=== PATIENT | female | born 1980 | race Caucasian/White ===

== ENCOUNTER 2017-05-23 07:30 | Inpatient (IN) ==
[2017-05-21 11:14] LABS: Basophils % 0.4 % (0.0-0.8); Eosinophils # 0.2 10*3/uL (0.0-0.87); Eosinophils % 2.1 % (0.00-10.9); Hematocrit 41.1 VOL% (35.7-47.0); Hemoglobin 13.4 GM/DL (12.0-16.0); Immature Granulocytes % 0.4 %; Immature Granulocytes Absolute 0.04 #; Lymphocytes # 2.3 10*3/uL (1.4-4.0); Lymphocytes % 24.6 % (21.3-54.2); Mean Corpuscular HGB Conc 32.6 GM/DL (32-36); Mean Corpuscular Hemoglobin 28 PG (27-34); Mean Corpuscular Volume 86.5 FL (87-102); Mean Platelet Volume 9.1 FL (9.6-12.0); Monocytes # 0.5 10*3/uL (0.11-0.8); Monocytes % 5.3 % (1.7-12.7); Neutrophils # 6.3 10*3/uL (1.4-7.4); Neutrophils % 67.2 % (38.7-73.9); Platelet Count 265 T/CUMM (130-400); Red Blood Count 4.75 MC/CUMM (3.8-5.5); Red Cell Distribution Width 13.3 % (9.3-17.3); White Blood Count 9.4 T/CUMM (4-12)
[2017-05-21 11:40] LABS: Apearance,Urine Slightly Hazy (Clear); Bacteria,Urine Occasional /HPF (Few); Bilirubin,Urine Negative (Negative); Blood, Urine Negative (Negative); Glucose,Urine (UA) Negative (Negative); Ketones,Urine Negative (Negative); Mucus,Urine Occasional /LPF (Occasional); Nitrite,Urine Negative (Negative); Protein,Urine Negative; RBC,Urine 3 /HPF (0-4); Squamous Epithelial Cell,Urine Few /HPF (0-10); Urine Color Yellow (Yellow); Urine Specific Gravity 1.019 (1.001-1.035); Urine Urobilinogen < 2.0 EU/DL (0.2-1.0); WBC,Urine 1 /HPF (0-6)
[2017-05-21 11:52] LABS: Albumin 3.7 G/DL (3.4-5.0); Bilirubin,Total 0.4 MG/DL (0.2-1.0); Calcium 9.1 MG/DL (8.5-10.1); Osmolality,Calculated 275.7 MOS/KG (273-304); Potassium 4.9 MMOL/L (3.5-5.1); Risk Ratio 3.27; Total Protein 7.6 G/DL (6.4-8.3); VLDL CHOLESTEROL 12.4 MG/DL
[2017-05-21 14:03] LABS: HIV Antigen/Antibody Result Nonreactive (Nonreactive)
[2017-05-29] MEDS ORDERED: AMPICILLIN/SULBACTAM 3,000 MG in SODIUM CHLORIDE 0.9% 100 ML IV ONE (06:00)
[2017-05-29] MEDS ORDERED: FAMOTIDINE 20 MG TABLET PO ONE (06:00)
[2017-05-29] MEDS ORDERED: DIAZEPAM 5 MG TABLET PO ONE (06:00)
[2017-05-29] MEDS ORDERED: AMPICILLIN/SULBACTAM 3,000 MG VIAL ONE (06:32)
[2017-05-29] MEDS ORDERED: FAMOTIDINE 20 MG TABLET ONE (06:33)
[2017-05-29] MEDS ORDERED: DIAZEPAM 5 MG TABLET ONE (06:33)
[2017-05-29] MEDS ORDERED: LACTATED RINGERS 1,000 ML IV SCH ×2 (07:00→09:30)
[2017-05-29] MEDS ORDERED: ACETAMINOPHEN 1,000 MG/100 ML VIAL IV ONE (08:24)
[2017-05-29] MEDS ORDERED: ACETAMINOPHEN 325 MG TABLET PO PRN (09:23)
[2017-05-29] MEDS ORDERED: BISACODYL 10 MG SUPP RECTAL PRN (09:23)
[2017-05-29] MEDS ORDERED: BENZOCAINE/MENTHOL LOZENGE 18/BOX PO PRN (09:23)
[2017-05-29 09:46] LABS: Apearance,Urine CLEAR (Clear); Bilirubin,Urine Negative (Negative); Blood, Urine Negative (Negative); Glucose,Urine (UA) Negative (Negative); Ketones,Urine 20 mg/dL (Negative); Mucus,Urine Occasional /LPF (Occasional); Nitrite,Urine Negative (Negative); Protein,Urine Negative; RBC,Urine <1 /HPF (0-4); Urine Color Yellow (Yellow); Urine Specific Gravity 1.005 (1.001-1.035); Urine Urobilinogen < 2.0 EU/DL (0.2-1.0); WBC,Urine <1 /HPF (0-6)
[2017-05-29] MEDS ORDERED: PROPOFOL 200 MG/20 ML VIAL IV ONE (09:46)
[2017-05-29] MEDS ORDERED: SEVOFLURANE 1 UNIT/15 MINUTE INH ONE (09:46)
[2017-05-29] MEDS ORDERED: KETOROLAC 30 MG/1 ML VIAL ONE (09:47)
[2017-05-29] MEDS ORDERED: MIDAZOLAM 2 MG/2 ML VIAL ONE (09:47)
[2017-05-29] MEDS ORDERED: ROCURONIUM 100 MG/10 ML VIAL IV ONE (09:47)
[2017-05-29] MEDS ORDERED: NEOSTIGMINE 10 MG/10 ML VIAL ONE (09:47)
[2017-05-29] MEDS ORDERED: fentaNYL 100 MCG/2 ML VIAL ONE (09:47)
[2017-05-29] MEDS ORDERED: ONDANSETRON 4 MG/2 ML VIAL ONE ×2 (09:47→09:52)
[2017-05-29] MEDS ORDERED: GLYCOPYRROLATE 0.4 MG/2 ML VIAL ONE (09:47)
[2017-05-29] MEDS ORDERED: LACTATED RINGERS 1,000 ML IV ONE (09:47)
[2017-05-29] MEDS ORDERED: DEXAMETHASONE 10 MG/1 ML VIAL ONE (09:47)
[2017-05-29] MEDS ORDERED: HYDROmorphone 2 MG/1 ML VIAL ONE (09:52)
[2017-05-29] MEDS: HYDROmorphone 2 MG/1 ML VIAL IV PRN ×7 (09:55→23:41)
[2017-05-29] MEDS ORDERED: ONDANSETRON 4 MG/2 ML VIAL IV PRN (10:05)
[2017-05-29] MEDS ORDERED: METHOCARBAMOL 750 MG PO PRN (10:48)
[2017-05-29] MEDS ORDERED: HYDROmorphone PCA 30 MG/30 ML SYRINGE IV SCH (10:48)
[2017-05-29] MEDS ORDERED: NALOXONE 0.4 MG/ML VIAL IV PRN (10:48)
[2017-05-29] MEDS ORDERED: METHOCARBAMOL 750 MG TABLET PO PRN (13:11)
[2017-05-29] MEDS ORDERED: INFLUENZA VIRUS VACCINE 0.5 ML SYRINGE IM ONE (13:30)
[2017-05-29] MEDS: ceFAZolin 2,000 MG in PREMIX 1 EACH IV SCH ×2 (15:21→23:45)
[2017-05-30 06:39] LABS: Basophils % 0.1 % (0.0-0.8); Hematocrit 34.5 VOL% (35.7-47.0); Hemoglobin 11.3 GM/DL (12.0-16.0); Immature Granulocytes % 0.4 %; Immature Granulocytes Absolute 0.05 #; Lymphocytes # 1.4 10*3/uL (1.4-4.0); Lymphocytes % 10.6 % (21.3-54.2); Mean Corpuscular HGB Conc 32.8 GM/DL (32-36); Mean Corpuscular Hemoglobin 28 PG (27-34); Mean Corpuscular Volume 86.3 FL (87-102); Mean Platelet Volume 9.3 FL (9.6-12.0); Monocytes # 0.8 10*3/uL (0.11-0.8); Monocytes % 6.1 % (1.7-12.7); Neutrophils # 10.8 10*3/uL (1.4-7.4); Neutrophils % 82.8 % (38.7-73.9); Platelet Count 282 T/CUMM (130-400); Red Cell Distribution Width 13.1 % (9.3-17.3)
[2017-05-30] MEDS: SIMETHICONE CHEW 80 MG TABLET PO PRN ×2 (08:47→21:49)
[2017-05-30] MEDS: DOCUSATE SODIUM 100 MG CAPSULE PO PRN ×2 (08:47→21:49)
[2017-05-30] MEDS: MAGNESIUM HYDROXIDE SUSP 30 ML UDCUP PO PRN ×2 (08:47→21:49)
[2017-05-30] MEDS: IBUPROFEN 800 MG TABLET PO PRN ×2 (08:52→16:33)
[2017-05-30] MEDS: CITALOPRAM 20 MG TABLET PO SCH ×2 (11:30→16:36)
[2017-05-30] MEDS: LEVOTHYROXINE 50 MCG TABLET PO SCH (21:49)
[2017-05-31] MEDS: ONDANSETRON 4 MG/2 ML VIAL IV PRN ×2 (04:44→07:40)
[2017-05-31] MEDS: SIMETHICONE CHEW 80 MG TABLET PO PRN ×3 (04:47→20:13)
[2017-05-31] MEDS ORDERED: METOCLOPRAMIDE 10 MG/2 ML VIAL IV PRN (07:36)
[2017-05-31] MEDS ORDERED: METOCLOPRAMIDE 10 MG TABLET PO PRN (07:42)
[2017-05-31] MEDS: CITALOPRAM 20 MG TABLET PO SCH (08:50)
[2017-05-31] MEDS: MAGNESIUM HYDROXIDE SUSP 30 ML UDCUP PO PRN (08:50)
[2017-05-31] MEDS: DOCUSATE SODIUM 100 MG CAPSULE PO PRN (08:50)
[2017-05-31] MEDS: IBUPROFEN 800 MG TABLET PO PRN ×2 (13:47→20:13)
[2017-05-31] MEDS: METOCLOPRAMIDE 10 MG TABLET PO SCH (16:34)
[2017-05-31] MEDS: LACTATED RINGERS 1,000 ML IV SCH (18:53)
[2017-05-31] MEDS: LEVOTHYROXINE 50 MCG TABLET PO SCH (20:13)
[2017-06-01] MEDS: METOCLOPRAMIDE 10 MG TABLET PO SCH ×2 (00:17→08:42)
[2017-06-01] MEDS: LACTATED RINGERS 1,000 ML IV SCH (02:00)
[2017-06-01] MEDS: IBUPROFEN 800 MG TABLET PO PRN (04:29)
[2017-06-01 07:41] VITALS: BP 119/84
[2017-06-01] MEDS: CITALOPRAM 20 MG TABLET PO SCH (08:43)
== END 2017-06-01 11:20 | disposition home or self-care (01) | DRG 513 ==
LOC: N.SDSINP 05-29 05:45 → N.OB 05-29 08:31
PROVIDERS: ADMIT Obstetrics & Gynecology; ATTEND Obstetrics & Gynecology